=== PATIENT | male | born 1970 | race Two or more races ===

== ENCOUNTER → 2019-10-23 | Day surgery (SDC) | payer BC ==
[~2019-10-23] VITALS: Ht 179.1 cm; Wt 77.1 kg
[2019-10-23] VITALS (8 sets, daily range): BP systolic 105–137; BP diastolic 45–81
[~2019-10-23] MED LIST: ASPIR 8181 MG ORAL; CRESTOR10 M2 ORAL; LR 1000ml 1,000 ML IVLG SCH; LR 1000ml ONE; Lidocaine 1% MPF 10mg/ml 5ml ONE
--- NOTE | 2019-10-23 08:13 | Short Stay Surgery H&P ---
History of Present Illness History of Present Illness Chief Complaint See attached typed H&P. Updated today - no changes. HPI Guero Benton is a 49 year old male who was admitted on for Screening Patient History Allergies: Coded Allergies: CODEINE (Verified Allergy, Severe, nausea, hives, 10/17/19) Medication History Scheduled Aspirin* (Aspir 81*), 81 MG ORAL DAILY, (Reported) Rosuvastatin Calcium* (Crestor*), 10 MG ORAL DAILY, (Reported) Physical Exam Vital Signs Last Vital Signs Date Time Temp Pulse Resp B/P (MAP) Pulse Ox O2 Delivery O2 Flow Rate FiO2 10/23/19 06:59 97.9 53 18 137/73 99 Room Air Plan Attestation Are the patient's medical conditions optimized for surgery? Therese Goodwin MD Oct 23, 2019 08:13
--- NOTE | 2019-10-23 08:14 | Pre-Procedure Note/Attestation ---
Pre-Procedure Note/Attestation Complete Prior to Procedure Planned Procedure: not applicable Procedure Narrative: colonoscopy Indications for Procedure Pre-Operative Diagnosis: screening Attestation I attest that I discussed the nature of the procedure; its benefits; risks and complications; and alternatives (and the risks and benefits of such alternatives ), prior to the procedure, with the patient (or the patient's legal graphic art sales representative). I attest that, if there was a reasonable possibility of needing a blood transfusion, the patient (or the patient's legal graphic art sales representative) was given the [facility] standardized written summary, pursuant to the [place] Blood Safety Act ([place] [facility] and Safety Code # 1645, as amended). I attest that I re-evaluated the patient just prior to the surgery and that there has been no change in the patient's H&P, except as documented below: Therese Goodwin MD Oct 23, 2019 08:14
--- NOTE | 2019-10-23 08:53 | Immediate Post-Op Evaluation ---
Immediate Post-Op Evalulation Immediate Post-Op Evalulation Procedure: colonoscopy Date of Evaluation: Oct 23, 2019 Time of Evaluation: 08:52 IV Fluids: 500 Blood Pressure Systolic: 116 Blood Pressure Diastolic: 68 Pulse Rate: 55 Respiratory Rate: 14 O2 Sat by Pulse Oximetry: 99 Temperature (Fahrenheit): 97.5 Nausea: No Vomiting: No Complications none Patient Status: awake, reacts, patent Hydration Status: adequate Drug: declined Mariel Paulino CRNA Oct 23, 2019 08:53
--- NOTE | 2019-10-23 08:57 | Anethesia Preoperative Eval ---
Anesthesia Pre-op PMH/ROS General Date of Evaluation: Oct 23, 2019 Time of Evaluation: 08:05 Anesthesiologist: ming ASA Score: ASA 2 Mallampati Score Class I : Soft palate, uvula, fauces, pillars visible Class II: Soft palate, uvula, fauces visible Class III: Soft palate, base of uvula visible Class IV: Only hard plate visible Mallampati Classification: Class II Surgeon: sarahi Diagnosis: screening Surgical Procedure: colonscopy Anesthesia History: none Family History: no anesthesia problems Allergies: Coded Allergies: CODEINE (Verified Allergy, Severe, nausea, hives, 10/17/19) Medications: see eMAR Patient NPO?: Yes NPO Date: Oct 23, 2019 NPO Time: 00:01 Past Medical History Cardiovascular: Reports: other - HLP; Denies: HTN, CAD, ID, valve dz, arrhythmia Pulmonary: Denies: asthma, COPD, NEIL, other Gastrointestinal/Genitourinary: Denies: GERD, CRI, ESRD, other Neurologic/Psychiatric: Denies: dementia, CVA, depression/anxiety, TIA, other Endocrine: Denies: DM, hypothyroidism, steroids, other HEENT: Denies: cataract (L), cataract (R), glaucoma, WIYOT (L), WIYOT (R), other Hematology/Immune: Denies: anemia, DVT, bleeding disorder, other Musculoskeletal/Integumentary: Denies: OA, RA, DJD, DDD, edema, other PSxH Narrative: colonoscopy Anesthesia Pre-op Phys. Exam Physician Exam Last Vital Signs Date Time Temp Pulse Resp B/P (MAP) Pulse Ox O2 Delivery O2 Flow Rate FiO2 10/23/19 06:59 97.9 53 18 137/73 99 Room Air Constitutional: NAD Neurologic: CN 2-12 intact Cardiovascular: RRR Respiratory: CTA Gastrointestinal: S/NT/ND Airway Exam Mallampati Classification 2 Mallampati Score: Class II MO: full ROM: full Dentures: no upper, no lower Anesthesia Pre-op A/P Studies Pre-op Studies: EKG - sr Risk Assessment & Plan Plan: mac Pre-Antibiotics Drug: declined Mariel Paulino CRNA Oct 23, 2019 08:57
--- NOTE | 2019-10-23 10:07 | 48 Hour Post Anesthesia Eval ---
Post Anesthesia Evaluation Procedure: colonoscopy Date of Evaluation: Oct 23, 2019 Time of Evaluation: 10:07 Blood Pressure Systolic: 129 0: 67 Pulse Rate: 53 Respiratory Rate: 14 O2 Sat by Pulse Oximetry: 98 Airway: patent Nausea: No Vomiting: No Hydration Status: adequate Cardiopulmonary Status: stable Mental Status/LOC: patient returned to baseline Post-Anesthesia Complications: none Follow-up care needed: N/A Mariel Paulino CRNA Oct 23, 2019 10:07
--- NOTE | 2019-10-23 10:30 | Operative Note - Dictated ---
DATE OF OPERATION: 10/23/2019 GASTROENTEROLOGY PROCEDURE REPORT PROCEDURE: 1. Screening colonoscopy. 2. Colonoscopy with biopsy. SURGEON: Therese Goodwin MD ANESTHESIA: Please see the separate anesthesiologist notes for details. PRE-ENDOSCOPIC DIAGNOSIS: Screening. POST-ENDOSCOPIC DIAGNOSIS: Four diminutive polyps seen in the colon and removed with biopsy forceps as described. PROCEDURE IN DETAIL: The procedure, its risks, indications, alternatives, and possible complications were explained and informed consent was obtained. The patient was then sedated in the left lateral decubitus position and a rectal exam was done, which was normal. The colonoscope was introduced into the rectum and advanced to 10 cm into the terminal ileum. The terminal ileal mucosa was normal. The examination of the colonic mucosa revealed diminutive polyps, which were all under 5 millimeters in the cecum, transverse colon, splenic flexure, and sigmoid colon. All polyps were removed with biopsy forceps and sent to pathology for review. The colonoscope was removed and the patient was sent to Recovery in good condition. COMPLICATIONS: None. RECOMMENDATIONS: 1. Follow up biopsy results. 2. Outpatient followup. Therese Goodwin M.D. DR: PAULINA JOB#: [id number] CC:
--- NOTE | 2019-10-25 04:57 | Endoscopy Procedure Note ---
Endoscopy Procedure Note General Indication for Procedure: screening Procedures Performed: colonoscopy Operative Findings/Diagnosis: 4 polyps Specimen: yes Pt Tolerated Procedure Well: Yes Estimated Blood Loss: minimal Anesthesia Anesthesiologist: see report Anesthesia: MAC Medications Medication Given: see anesthesia record Inserted Devices Implant(s) used?: No GI Core Measures 50 yrs or older w/o bx or poly: No 10yrs. F/U recommended: No If not recommended, why?: Above average risk 18 years or older w/prev. colo: No <3yrs. since last colonoscopy: No Med reason:<3 yrs.: System Reason:<3 yrs.: Last colonoscopy >= to 3yrs: Yes Therese Goodwin MD Oct 25, 2019 04:57
--- NOTE | 2019-10-25 04:58 | Brief Operative Note ---
Immediate Post Operative Note Operative Note Chief Complaint: screen Pre-op Diagnosis: screening Procedure: colon bx Post-op Diagnosis: colon polyps Surgeon: nithya Anesthesiologist: see report Anesthesia: MAC Specimen: yes Complications: none Condition: stable Fluids: per anesthesia Estimated Blood Loss: none Drains: none Implant(s) used?: No Therese Goodwin MD Oct 25, 2019 04:58
== END | disposition home or self-care (01) ==
LOC: GAS 06:42
DX: Z12.11 Encounter for screening for malignant neoplasm of colon (principal); D12.0 Benign neoplasm of cecum; D12.3 Benign neoplasm of transverse colon; K63.5 Polyp of colon; Z79.899 Other long term (current) drug therapy; Z88.6 Allergy status to analgesic agent; E78.5 Hyperlipidemia, unspecified
CPT/HCPCS: 45380; 94003; J2704; J7120; 94150